=== PATIENT | male | born 1980 | race Caucasian/White ===

== ENCOUNTER 2025-01-13 10:25 | Emergency (ER) | payer OTHER ==
[~2025-01-13] VITALS: Ht 177.8 cm; Wt 83.9 kg
[2025-01-13 10:34] VITALS: BP 114/68; TEMP 98.2
[2025-01-13 10:49] VITALS: O2SAT 100
== END 2025-01-13 10:51 | disposition home or self-care (01) ==
LOC: ER 10:30
DX: M79.673 Pain in unspecified foot (principal); G89.29 Other chronic pain; F17.200 Nicotine dependence, unspecified, uncomplicated; Z59.00 Homelessness unspecified